=== PATIENT | male | born 1995 | race Caucasian/White ===

== ENCOUNTER 2021-11-30 17:46 | Emergency (ER) | payer BC ==
[2021-11-30 18:32] VITALS: BP 114/76; PULSE 86; RESP 16; TEMP 97.4
[2021-11-30] MEDS ORDERED: LIDOCAINE 5% PATCH TOPICAL STA (18:41)
[2021-11-30] MEDS ORDERED: ACET/COD 300 MG/30 MG STARTER PACK 6 TAB BTL PO STA ×2 (18:41→19:51)
[2021-11-30] MEDS ORDERED: KETOROLAC 15 MG/ML 1 ML VIAL IM STA (18:41)
--- NOTE | 2021-11-30 18:45 | ED ---
Fall HPI - General Chief Complaint: Fall Stated Complaint: rib pain Time Seen by Provider: 11/30/21 18:34 Source: patient Mode of arrival: ambulatory - History of Present Illness Initial Comments: 26-year-old male patient presents to the emergency department today for evaluation of left rib pain after a fall. Patient states on Sunday he was coming down some cement stairs any skipped a step and fell landing on his left side. Denies hitting his head or losing consciousness. Denies any neck or back pain. States he is having significant rib pain since the injury. States it hurts to take a deep breath, cough, or sneeze. He is concerned he may have broken a rib. Denies taking anything for pain. Denies any hemoptysis or cough. Denies shortness of breath. Denies any abdominal pain. Denies any use of anticoagulant or antiplatelet medications. - Related Data Previous Rx's Medication Instructions Recorded Magnesium Hydroxide [Milk of 20 ml PO BID PRN 2 Days ml 11/30/13 Magnesia] Ibuprofen [Motrin] 600 mg PO Q8HR PRN #30 tab 11/30/21 Lidocaine 5% Patch [Lidoderm] 1 patch TOPICAL DAILY #30 patch 11/30/21 Allergies Allergy/AdvReac Type Severity Reaction Status Date / Time No Known Allergies Allergy Verified 11/30/21 18:32 Review of Systems ROS Statement: Those systems with pertinent positive or pertinent negative responses have been documented in the HPI. ROS Other: All systems not noted in ROS Statement are negative. Past Medical History Past Medical History: No Reported History History of Any Multi-Drug Resistant Organisms: None Reported Past Surgical History: Orthopedic Surgery Past Psychological History: Depression Smoking Status: Never smoker Past Alcohol Use History: Occasional Past Drug Use History: None Reported General Exam Limitations: no limitations General appearance: alert, in no apparent distress, other (This is a well- developed, well-nourished adult male in no acute distress.) Neck exam: Present: normal inspection, full ROM, other (Nontender, no step-off, no deformity to firm midline palpation of the posterior cervical spine. Full range of motion without pain or limitation.). Absent: tenderness, meningismus, lymphadenopathy Respiratory exam: Present: normal lung sounds bilaterally, chest wall tenderness (Left sanay-lateral lower ribs.). Absent: respiratory distress, wheezes, rales, rhonchi, stridor Cardiovascular Exam: Present: regular rate, normal rhythm, normal heart sounds. Absent: systolic murmur, diastolic murmur, rubs, gallop, clicks GI/Abdominal exam: Present: soft, normal bowel sounds, other (Surface trauma noted). Absent: distended, tenderness, guarding, rebound, rigid Neurological exam: Present: alert, oriented X3, CN II-XII intact Psychiatric exam: Present: normal affect, normal mood Skin exam: Present: warm, dry, intact, normal color. Absent: rash Course Vital Signs 11/30/21 18:30 Temperature 97.4 F L Pulse Rate 86 Respiratory 16 Rate Blood Pressure 114/76 O2 Sat by Pulse 98 Oximetry Medical Decision Making - Medical Decision Making 6-year-old male patient presents to the emergency department for evaluation of left rib pain after a fall 2 days ago. Physical examination did reveal tenderness over the left anterolateral ribs. X-ray was obtained and showed no evidence for displaced rib fracture. Symptoms are consistent with occult fracture, will treat with Lidoderm patches, anti-inflammatory medication, splinting, incentive spirometer. He is given Tylenol with Codeine starter pack for home. He is educated regarding use of incentive spirometer and importance of coughing and deep breathing to prevent pneumonia. He is given 8lb lifting restriction. Return parameters were discussed in detail. He verbalizes understanding and agrees with this plan. My attending is Dr. Gil. - Radiology Data Radiology results: report reviewed, image reviewed 5 views of the left ribs and chest are obtained. Report reviewed in its entirety. Impression by Dr. Gordon shows normal chest. Normal left ribs. Disposition Clinical Impression: Rib fracture Disposition: HOME SELF-CARE Condition: Good Instructions (If sedation given, give patient instructions): Rib Fracture (ED) Additional Instructions: Take medications as directed. Apply ice to the painful area. Use a pillow to splint when coughing, laughing, or sneezing. Perform coughing and deep breathing exercises several times throughout the day to prevent pneumonia. 8lb lift restriction. Follow-up with her primary care physician for recheck in 1-2 days. Return for any new, worsening, or concerning symptoms. Prescriptions: Lidocaine 5% Patch [Lidoderm] 1 patch TOPICAL DAILY #30 patch Ibuprofen [Motrin] 600 mg PO Q8HR PRN #30 tab PRN Reason: Pain Is patient prescribed a controlled substance at d/c from ED?: No Referrals: None,Stated [Primary Care Provider] - 1-2 days Time of Disposition: 19:51
--- NOTE | 2021-11-30 19:11 | XR ---
EXAMINATION TYPE: XR ribs LT w pa chest xray DATE OF EXAM: 11/30/2021 COMPARISON: NONE HISTORY: Rib pain TECHNIQUE: 5 views FINDINGS: Heart and mediastinum are normal. Lungs are clear. Diaphragm is normal. Bony thorax is inta ct. Pulmonary vascularity is normal. There is no pleural effusion or pneumothorax. The left ribs appe ar intact. IMPRESSION: Normal chest. Normal left ribs.
== END 2021-11-30 20:02 | disposition home or self-care (01) ==
LOC: EC 17:46
DX: S22.32XA Fracture of one rib, left side, initial encounter for closed fracture (principal); W10.9XXA Fall (on) (from) unspecified stairs and steps, initial encounter
CPT/HCPCS: 71101; 99284; 96372; J1885